=== PATIENT | male | born 1960 | race Caucasian/White ===

== ENCOUNTER 2016-04-25 15:22 | Emergency (ER) | payer OTHER ==
[~2016-04-25 15:22] MED LIST: LEVOFLOXACIN500 MG PO
--- NOTE | 2016-04-25 16:41 | ED NURSING NOTES ---
Clinical Report - Nurses [facility] [address] [place] [address] 04/25/2016 15:24 Patient: CLAIR ALFONSO TRIAGE Triage time 1600 PM. Acuity: LEVEL 3. Alert. No acute distress. SEPSIS SCREEN: Sepsis Screen. Negative (no infection suspected/documented). --16:13 Sera Baker R.N. 16:02 04/25/16. BP: 124/85 taken on the left arm, while lying. HR: 67. RR: 20. O2 saturation: 100%. Temp: 98.2 F (oral). Pain level now: 0/10. --16:13 Sera Baker R.N. Chief Complaint: RIGHT LOWER EXTREMITY PAIN. correction to prior entry - late entry -. --15:07 Sera Baker R.N. Weight: 69.3 kg stated. Height/Length: 70 inches Per Patient. BMI: 21.9. --16:02 Sera Baker R.N. Medications None. --16:03 Sera Baker R.N. Allergies No Known Drug Allergy. --16:03 Sera Baker R.N. Medication/allergy information source: the patient. --16:13 Sera Baker R.N. History Historian: patient. ( Pt was dropped off by a friend, homeless no doctor). This occurred (started two weeks ago). ( Pt states starting to feel right groin pain, "which he states that 4 years ago he was lifting and thought he tore something" it only hurts when he moves). Has had no swelling or redness. No fever, difficulty breathing, skin rash, itching or trouble walking. No weakness. Treatment DIET CONSULTANT: None. PAST MEDICAL HX: Tetanus status: unknown. Immunizations: up-to-date. SOCIAL HX: Light tobacco smoker (3 a day). Alcohol use. 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 History of occasional drug use: methamphetamines. (5 hours). ABUSE ASSESSMENT: Abuse assessment: (pt is homeless). No report of abuse. SELF HARM ASSESSMENT: A self harm assessment was performed. The patient answered "no" to the question "Do you have thoughts of harming or killing yourself?" and "Have you recently had thoughts about harming or killing others?". FALL RISK ASSESSMENT: Fall risk assessment completed. No fall risk identified. NUTRITIONAL RISK ASSESSMENT: The nutritional risk assessment revealed no deficiencies. FUNCTIONAL ASSESSMENT: Functional assessment: no impairments noted. LEARNING NEEDS ASSESSMENT: The learning needs assessment revealed no barriers. SKIN INTEGRITY ASSESSMENT: Skin integrity risk assessment completed. No skin integrity risk identified. --16:13 Sera Baker R.N. No injury occurred. It is described as radiating to the right groin. --15:07 Sera Baker R.N. PROBLEMS: Abrasion(s). Lifestyle / Substance Problems. Anxiety Reaction. Pneumonia. Substance Abuse. Contusion. Tetanus Status. Immunizations. Bronchitis. URI. Dental Pain. Hypertension. --16:04 Sera Baker R.N. ADDITIONAL SURGERIES: no known surgeries. Interventions ID band on patient. --16:13 Sera Baker R.N. PHYSICAL ASSESSMENT Ambulatory to room. GENERAL / NEURO / PSYCH: Oriented X 4. Alert. Appears in no acute distress. SKIN: Skin intact. Skin is warm and dry. --16:14 Sera Baker R.N. NURSING PROGRESS NOTES The initial plan of care for this patient has been created. Patient gowned. Reassurance given. Patient identifiers checked. Call light placed in reach. Side rails up x 2. Bed placed in lowest position. Brakes of bed on. Brakes of chair on. Patient ready for evaluation- chart flagged and notification provided. --16:14 Sera Baker R.N. DISPOSITION / DISCHARGE Departure time: 1650 PM. Condition at departure: stable. The goals identified in the patient's plan of care were met. No learning barriers present. Discharge instructions provided and reviewed. Patient verbalized understanding. Written instructions provided in Tunisian. No medication instructions, treatment instructions or referrals given to the patient. The patient was discharged by the nurse practitioner. He was discharged (homeless) and unaccompanied at time of discharge. He left the Emergency Department ambulatory and via private vehicle and (friend will tow picker). Driving (friend). FALL RISK ASSESSMENT: Fall risk assessment completed. No fall risk identified. ARTHUR COMA SCORE: [place] Coma Scale: 15- eyes open spontaneously (4); best verbal response- oriented x 4 (5); best motor response- obeys commands (6). --16:51 Sera Baker R.N. 16:46 04/25/16. BP: 126/96 taken on the left arm, via an automated monitor, while lying. HR: 73. RR: 16. O2 saturation: 99% on room air. Temp: 97.9 F (oral). Pain level now: 0/10. --16:51 Sera Baker R.N. Locked/Released at 05/02/2016 15:07 by Sera Baker R.N.
--- NOTE | 2016-04-25 16:41 | ED NURSING NOTES ---
Clinical Report - Nurses [facility] [address] [place] [address] 04/25/2016 15:24 Patient: CLAIR ALFONSO TRIAGE Triage time 1600 PM. Acuity: LEVEL 3. Alert. No acute distress. SEPSIS SCREEN: Sepsis Screen. Negative (no infection suspected/documented). --16:13 Sera Baker R.N. 16:02 04/25/16. BP: 124/85 taken on the left arm, while lying. HR: 67. RR: 20. O2 saturation: 100%. Temp: 98.2 F (oral). Pain level now: 0/10. --16:13 Sera Baker R.N. Chief Complaint: RIGHT LOWER EXTREMITY PAIN. correction to prior entry - late entry -. --15:07 Sera Baker R.N. Weight: 69.3 kg stated. Height/Length: 70 inches Per Patient. BMI: 21.9. --16:02 Sera Baker R.N. Medications None. --16:03 Sera Baker R.N. Allergies No Known Drug Allergy. --16:03 Sera Baker R.N. Medication/allergy information source: the patient. --16:13 Sera Baker R.N. History Historian: patient. ( Pt was dropped off by a friend, homeless no doctor). This occurred (started two weeks ago). ( Pt states starting to feel right groin pain, "which he states that 4 years ago he was lifting and thought he tore something" it only hurts when he moves). Has had no swelling or redness. No fever, difficulty breathing, skin rash, itching or trouble walking. No weakness. Treatment CHIEF LIBRARIAN BRANCH: None. PAST MEDICAL HX: Tetanus status: unknown. Immunizations: up-to-date. SOCIAL HX: Light tobacco smoker (3 a day). Alcohol use. 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 History of occasional drug use: methamphetamines. (5 hours). ABUSE ASSESSMENT: Abuse assessment: (pt is homeless). No report of abuse. SELF HARM ASSESSMENT: A self harm assessment was performed. The patient answered "no" to the question "Do you have thoughts of harming or killing yourself?" and "Have you recently had thoughts about harming or killing others?". FALL RISK ASSESSMENT: Fall risk assessment completed. No fall risk identified. NUTRITIONAL RISK ASSESSMENT: The nutritional risk assessment revealed no deficiencies. FUNCTIONAL ASSESSMENT: Functional assessment: no impairments noted. LEARNING NEEDS ASSESSMENT: The learning needs assessment revealed no barriers. SKIN INTEGRITY ASSESSMENT: Skin integrity risk assessment completed. No skin integrity risk identified. --16:13 Sera Baker R.N. No injury occurred. It is described as radiating to the right groin. --15:07 Sera Baker R.N. PROBLEMS: Abrasion(s). Lifestyle / Substance Problems. Anxiety Reaction. Pneumonia. Substance Abuse. Contusion. Tetanus Status. Immunizations. Bronchitis. URI. Dental Pain. Hypertension. --16:04 Sera Baker R.N. ADDITIONAL SURGERIES: no known surgeries. Interventions ID band on patient. --16:13 Sera Baker R.N. PHYSICAL ASSESSMENT Ambulatory to room. GENERAL / NEURO / PSYCH: Oriented X 4. Alert. Appears in no acute distress. SKIN: Skin intact. Skin is warm and dry. --16:14 Sera Baker R.N. NURSING PROGRESS NOTES The initial plan of care for this patient has been created. Patient gowned. Reassurance given. Patient identifiers checked. Call light placed in reach. Side rails up x 2. Bed placed in lowest position. Brakes of bed on. Brakes of chair on. Patient ready for evaluation- chart flagged and notification provided. --16:14 Sera Baker R.N. DISPOSITION / DISCHARGE Departure time: 1650 PM. Condition at departure: stable. The goals identified in the patient's plan of care were met. No learning barriers present. Discharge instructions provided and reviewed. Patient verbalized understanding. Written instructions provided in Zimbabwean. No medication instructions, treatment instructions or referrals given to the patient. The patient was discharged by the nurse practitioner. He was discharged (homeless) and unaccompanied at time of discharge. He left the Emergency Department ambulatory and via private vehicle and (friend will picket [employer]). Driving (friend). FALL RISK ASSESSMENT: Fall risk assessment completed. No fall risk identified. ARTHUR COMA SCORE: [place] Coma Scale: 15- eyes open spontaneously (4); best verbal response- oriented x 4 (5); best motor response- obeys commands (6). --16:51 Sera Baker R.N. 16:46 04/25/16. BP: 126/96 taken on the left arm, via an automated monitor, while lying. HR: 73. RR: 16. O2 saturation: 99% on room air. Temp: 97.9 F (oral). Pain level now: 0/10. --16:51 Sera Baker R.N. Locked/Released at 05/02/2016 15:07 by Sera Baker R.N.
--- NOTE | 2016-04-25 16:41 | ED CLINICAL REPORT ---
Clinical Report - Physicians/Mid Levels Merged With [facility] [address] [place] [address] 04/25/2016 15:24 Patient: CLAIR ALFONSO Time Seen: 1626; initial patient contact, initial documentation, patient care assumed. Arrived- By private vehicle. Historian- patient. RETURN VISIT: recently seen in this ED by another ED physician. Seen now for a new unrelated complaint. HISTORY OF PRESENT ILLNESS Chief Complaint: PELVIC PAIN groin pain. It is described as "pain". No radiation. It is described as located in the right pelvis. At its maximum, severity described as severe. When seen in the E.D., severity described as mild. Modifying factors. Not worsened by anything. Not relieved by anything. This started about 3 years ago and is still present. It was abrupt in onset and has been intermittent. No vomiting or diarrhea. No additional abdominal pain. (states he had to lift a jose e about x3 years ago, felt a tear in the R groin/pelvic area, and it comes and goes where it pops or pinches and causes pain). No recent travel. Similar symptoms previously: Chronically, as bad. Recent medical care: The patient was seen recently at this facility and hospitalized. ( admit for pnuemonia, 04/13). REVIEW OF SYSTEMS No constipation, black stools, hematemesis, difficulty with urination or pain with urination. No urinary frequency, bloody stools, fever, chest pain or difficulty breathing. All systems otherwise negative, except as recorded above. PAST HISTORY See nurses notes. PROBLEMS: Abrasion(s). Lifestyle / Substance Problems. Anxiety Reaction. Pneumonia. Substance Abuse. Contusion. Tetanus Status. Immunizations. Bronchitis. URI. Dental Pain. Hypertension. --16:04 Sera Baker RShawna. ADDITIONAL SURGERIES: no known surgeries. SOCIAL HISTORY Light tobacco smoker. Alcohol use. Patient is a longstanding alcoholic. History of heavy drug use: methamphetamines. Recently used drugs just prior to arrival. Under influence in ED. No recent travel. Is a local resident. FAMILY HISTORY Negative. ADDITIONAL NOTES The nursing notes have been reviewed with agreement regarding the chief complaint, HPI, ROS, PMH and patient medications and allergies. PHYSICAL EXAM Vital Signs: 04/25/2016 16:02 BP: 124/85. HR: 67. RR: 20. O2 saturation: 100%. Temp: 98.2 F. Pain level now: 0/10. Have been reviewed as normal and appear to be correct. Appearance: Alert. Oriented X3. No acute distress. Eyes: Pupils equal, round and reactive to light. Eyes normal inspection. Neck: Normal inspection. Neck supple. CVS: Normal heart rate and rhythm. Heart sounds normal. Pulses normal. Respiratory: No respiratory distress. Breath sounds normal. Chest nontender. Abdomen: Soft and nontender. No organomegaly. No mass. Back: Normal inspection. : Normal genitalia. Testes descended. (uncircumscised). Skin: Skin warm and dry. Normal skin color. No rash. Normal skin turgor. Extremities: Extremities exhibit normal ROM. No lower extremity edema. Neuro: Oriented X 3. No motor deficit. No sensory deficit. PROGRESS AND PROCEDURES Patient counseled in person regarding the patient's stable condition and diagnosis. 16:41. Differential Diagnosis: I considered acute appendicitis, adhesions, obstipation and hernia as a possible cause of abdominal pain in this patient. This is a partial list of diagnoses considered. Above considerations are based on history and physical exam. Differential diagnosis was discussed with patient. Disposition: Discharged home in good and improved condition (16:41). Condition: good and stable. CLINICAL IMPRESSION Chronic right lower quadrant abdominal pain. INSTRUCTIONS Warnings: GENERAL WARNINGS: Return or contact your physician immediately if your condition worsens or changes unexpectedly, if not improving as expected, or if other problems arise. SPECIFICALLY, return if you develop pain in the abdomen or pelvis, fever, the inability to keep fluids down, blood in vomitus, blood in diarrhea, fainting or lightheadedness. Follow-up: Follow up with your doctor in about two days even if well. Call for an appointment. Summary of care provided to family. Understanding of the discharge instructions verbalized by patient. (Electronically signed by Yanira Szymanski A.R.N.P. 04/25/2016 17:49)
--- NOTE | 2016-05-02 15:08 | ED MED RECONCILIATION SUMMARY ---
Patient: HORACE WHIPPLEADRIANNEYESSENIACLAIR Medication Reconciliation Report [facility] VisitID: [id number] [address] [place] [address] 56y, M Registration Date/Time: 04/25/2016 Weight: 69.3 kg Height/Length: 70 in. BMI: 21.9 ALLERGIES: No Known Drug Allergy The patient's Home Medications are listed below: NONE. The source(s) of the original Home Medication information: patient The following Medications were given to the patient in the Emergency Department: None. The following Medications were prescribed to the patient: None.
--- NOTE | 2016-05-02 15:08 | ED DISCHARGE INSTRUCTIONS ---
Patient: CLAIR ALFONSO General Instructions [facility] VisitID: [id number] [place] [address] 56y, M Registration Date/Time: 04/25/2016 Chronic right lower quadrant abdominal pain. INSTRUCTIONS Warnings: GENERAL WARNINGS: Return or contact your physician immediately if your condition worsens or changes unexpectedly, if not improving as expected, or if other problems arise. SPECIFICALLY, return if you develop pain in the abdomen or pelvis, fever, the inability to keep fluids down, blood in vomitus, blood in diarrhea, fainting or lightheadedness. Follow-up: Follow up with your doctor in about two days even if well. Call for an appointment. Summary of care provided to family. Understanding of the discharge instructions verbalized by patient. ADDITIONAL INFORMATION Abdominal Pain,Uncertain Cause [Male] Based on your visit today, the exact cause of your abdominalpain is not clear. Your exam and tests do not indicate a dangerous cause at this time. However, the signs of a serious problem may take more time to appear. Although your evaluation was reassuring today, sometimes early in the course of many conditions, exam and lab tests can appear normal. Therefore, it is important for you to watch for any new symptoms or worsening of your condition. Causes It may not be obvious what caused your symptoms. Pay attention to things that do seem to make your symptoms worse or better and discuss this with your doctor when you follow up. Diagnosis The evaluation of abdominal pain in the emergency department may onlyrequire an exam by the doctor or it may include blood, urine or imaging studies, depending on many factors. Sometimes exams and tests can identify a cause but in many cases, a clear cause is not found. Further testing at follow up visits may help to suggest a clear diagnosis. Home Care Rest as much as possible until your next exam. Try to avoid any medications (unless otherwise directed by your doctor), foods, activities, or other factors that you may have contributed to your symptoms. Try to eat foods that you know that you have tolerated well in the past. Certain diets may be recommended for some conditions that cause abdominal pain. However, since the cause of your symptoms may not be clear, discuss your diet more with your primary care provider or specialist for further recommendations. Eating several small meals per day as opposed to 2 or 3 larger meals may help. Monitor closely for anything that may make your symptoms worse or better. Pay close attention to symptoms below that may indicate worsening of your condition. Follow Up and Precautions See your doctoras instructed or sooneror if your symptoms are not improving.In some cases, you may need more testing. When to Seek Medical Attention Contact your doctor or see medical attention ifany of the following occur: Pain is becoming worse You are unable to take your medications due to excessive vomiting Swelling of the abdomen Fever of 100.4F (38C) or higher, or as directed by your health care provider Blood in vomit or bowel movements (dark red or black color) Jaundice (yellow color of eyes and skin) New onset of weakness, dizziness or fainting New onset of chest, arm, back, neck or jaw pain Abdominal Pain, Possible Appendicitis, Repeat Exam, Male Based on your visit today, the exact cause of your abdominal (stomach) pain is not certain. However, you do have some of the early signs of appendicitis. Early in an appendix infection the symptoms can be similar to a simple "stomach ache" or "stomach flu". Therefore, the diagnosis can be hard to make.Since an appendix infection is a serious condition, it is important to know if this is the cause of your symptoms. WAITING for more time to pass and repeating the exam is the best way to find out whether you have appendicitis. Within the next 12-24 hours the cause of your stomach pain should become clear. It is important for you to watch for any new symptoms or worsening of your condition.(See below). Home Care: Rest until your next exam. No strenuous activities. Eat a diet low in fiber (called a low-residue diet). Foods allowed include refined breads, white rice, fruit and vegetable juices without pulp, tender meats. These foods will pass more easily through the intestine. Avoid whole-grain foods, whole fruits and vegetables, meats, seeds and nuts, fried or fatty foods, dairy, alcohol and spicy foods until your symptoms go away. In some cases, you may be asked not to eat or drink anything until you are re-examined. Return for another exam exactly as directed. Follow Up with your doctor or this facility as directed. [NOTE: If you had an X-ray, CT scan, ultrasound, or EKG (cardiogram), it will be reviewed by a specialist. You will be notified of any new findings that may affect your care.] Return Promptly before your next appointment or contact your doctor if any of the following occur: Pain gets worse or moves to the right lower abdomen New or worsening vomiting or diarrhea Swelling of the abdomen Unable to pass stool for more than three days New fever over 100.4 F (38.0 C), or rising fever Blood in vomit or bowel movements (dark red or black color) Weakness, dizziness or fainting You have been given the following additional information: Abdominal Pain, Unknown Cause, (Male) Abdominal Pain, Possible Appendicitis [Male] (Electronically signed by Yanira Szymanski A.R.N.P. 04/25/2016 17:49)
--- NOTE | 2016-05-02 15:08 | ED MAR SUMMARY ---
..... Medication Administration Record [facility] [address] [place], [place] [id number] Patient: CLAIR ALFONSO Visit ID: [id number] 56y, M Weight: 69.3 kg Height/Length: 70 in BMI: 21.9 ALLERGIES: No Known Drug Allergy
--- NOTE | 2016-05-02 15:08 | ED MAR SUMMARY ---
..... Medication Administration Record [facility] [address], [place] [id number] Patient: CLAIR ALFONSO Visit ID: [id number] 56y, M Weight: 69.3 kg Height/Length: 70 in BMI: 21.9 ALLERGIES: No Known Drug Allergy
--- NOTE | 2016-05-02 15:08 | ED MED RECONCILIATION SUMMARY ---
Patient: HORACE WHIPPLEADRIANNEYESSENIACLAIR Medication Reconciliation Report [facility] VisitID: [id number] [address] [place] [place] [address] 56y, M Registration Date/Time: 04/25/2016 Weight: 69.3 kg Height/Length: 70 in. BMI: 21.9 ALLERGIES: No Known Drug Allergy The patient's Home Medications are listed below: NONE. The source(s) of the original Home Medication information: patient The following Medications were given to the patient in the Emergency Department: None. The following Medications were prescribed to the patient: None.
== END 2016-04-25 16:50 | disposition home or self-care (01) ==
LOC: ED SRH 15:22
DX: R10.31 Right lower quadrant pain (principal); G89.29 Other chronic pain; I10 Essential (primary) hypertension; F17.290 Nicotine dependence, other tobacco product, uncomplicated

== ENCOUNTER 2016-06-23 22:38 | Emergency (ER) | payer OTHER ==
--- NOTE | 2016-06-24 01:38 | ED NURSING NOTES ---
Clinical Report - Nurses [facility] [address] [place] [address] 06/23/2016 22:38 Patient: CLAIR ALFONSO TRIAGE Triage time 23:09. Acuity: LEVEL 3. Chief Complaint: ABDOMINAL PAIN and (RLQ ABD pain). 23:15. Alert. SEPSIS SCREEN: Sepsis Screen. Negative (no infection suspected/documented). --23:15 Fabien Kuhn R.N. 23:09 06/23/16. BP: 116/80. HR: 64. RR: 16. O2 saturation: 99%. Temp: 98.3 F (oral). Pain level now: 08/29. --23:15 Fabien Kuhn R.N. Weight: 69.3 kg stated. Height/Length: 70 inches Per Patient. BMI: 21.9. --23:14 Fabien Kuhn R.N. Medications None. --23:10 Fabien Kuhn R.N. Medication/allergy information source: the patient. --23:15 Fabien Kuhn R.N. Allergies No Known Drug Allergy. --23:10 Fabien Kuhn R.N. History Arrived by private vehicle. Historian: patient. Unaccompanied. Primary physician ([facility]). Onset. (4 years ago- comes and goes). ( Patient reports he thinks he ripped something in his ABD). Treatment INSTRUMENT ADJUSTER: None. PAST MEDICAL HX: Immunizations: up-to-date. SOCIAL HX: Current every day smoker (cigar). History of occasional drug use: methamphetamines, marijuana. No alcohol use. No recent travel. No infectious disease exposure. ABUSE ASSESSMENT: No report of abuse. FALL RISK ASSESSMENT: Fall risk assessment completed. No fall risk identified. NUTRITIONAL RISK ASSESSMENT: The nutritional risk assessment revealed no deficiencies. FUNCTIONAL ASSESSMENT: Functional assessment: no impairments noted. LEARNING NEEDS ASSESSMENT: The learning needs assessment revealed no barriers. SKIN INTEGRITY ASSESSMENT: Skin integrity risk assessment completed. No skin integrity risk identified. --23:15 Fabien Kuhn R.N. PROBLEMS: Anxiety Reaction. Substance Abuse. Bronchitis. URI. Hypertension. --23:11 Fabien Kuhn R.N. The following entry was modified by Celine Tinajero MD, 17:50 Reason - duplicate <<STRICKEN ENTRY-- Lifestyle / Substance Problems. --17:49 Celine Tinajero MD --END STRIKE>>. ADDITIONAL SURGERIES: no known surgeries. Interventions ID band on patient. To treatment room. --23:15 Fabien Kuhn R.N. PHYSICAL ASSESSMENT 23:15. Ambulatory to room. Patient gowned. GENERAL / NEURO / PSYCH: Alert. Oriented X 4. HEENT: Mucous membranes are pink. RESPIRATORY: Respirations not labored. SKIN: Skin is warm and dry. --23:15 Fabien Kuhn R.N. NURSING PROGRESS NOTES 23:16. Head of bed elevated. Two patient identifiers checked. Call light placed in reach. Bed placed in lowest position. Brakes of bed on. Patient ready for evaluation- chart flagged. --23:16 Fabien Kuhn R.N. DISPOSITION / DISCHARGE No learning barriers present. Discharge instructions provided and reviewed with the patient. Reviewed referrals. Patient verbalized understanding. Written instructions provided in Turkish. The patient was discharged by the physician. He was discharged home. He left the Emergency Department ambulatory and via private vehicle. FALL RISK ASSESSMENT: Fall risk assessment completed. No fall risk identified. --01:50 Darren Dickerson 01:49 06/24/16. BP: 116/65. HR: 66. RR: 16. O2 saturation: 100%. Temp: deferred. Pain level now: 06/01. --01:50 Darren Dickerson Departure time: 01:50. --01:50 Darren Dickerson Locked/Released at 07/05/2016 8:40 by Montserrat Dotson R.N.
--- NOTE | 2016-06-24 01:38 | ED NURSING NOTES ---
Clinical Report - Nurses [facility] [address] [place] [address] 06/23/2016 22:38 Patient: CLAIR ALFONSO TRIAGE Triage time 23:09. Acuity: LEVEL 3. Chief Complaint: ABDOMINAL PAIN and (RLQ ABD pain). 23:15. Alert. SEPSIS SCREEN: Sepsis Screen. Negative (no infection suspected/documented). --23:15 Fabien Kuhn R.N. 23:09 06/23/16. BP: 116/80. HR: 64. RR: 16. O2 saturation: 99%. Temp: 98.3 F (oral). Pain level now: 08/29. --23:15 Fabien Kuhn R.N. Weight: 69.3 kg stated. Height/Length: 70 inches Per Patient. BMI: 21.9. --23:14 Fabien Kuhn R.N. Medications None. --23:10 Fabien Kuhn R.N. Medication/allergy information source: the patient. --23:15 Fabien Kuhn R.N. Allergies No Known Drug Allergy. --23:10 Fabien Kuhn R.N. History Arrived by private vehicle. Historian: patient. Unaccompanied. Primary physician ([facility]). Onset. (4 years ago- comes and goes). ( Patient reports he thinks he ripped something in his ABD). Treatment RADIO MECHANIC: None. PAST MEDICAL HX: Immunizations: up-to-date. SOCIAL HX: Current every day smoker (cigar). History of occasional drug use: methamphetamines, marijuana. No alcohol use. No recent travel. No infectious disease exposure. ABUSE ASSESSMENT: No report of abuse. FALL RISK ASSESSMENT: Fall risk assessment completed. No fall risk identified. NUTRITIONAL RISK ASSESSMENT: The nutritional risk assessment revealed no deficiencies. FUNCTIONAL ASSESSMENT: Functional assessment: no impairments noted. LEARNING NEEDS ASSESSMENT: The learning needs assessment revealed no barriers. SKIN INTEGRITY ASSESSMENT: Skin integrity risk assessment completed. No skin integrity risk identified. --23:15 Fabien Kuhn R.N. PROBLEMS: Anxiety Reaction. Substance Abuse. Bronchitis. URI. Hypertension. --23:11 Fabien Kuhn R.N. The following entry was modified by Celine Tinajero MD, 17:50 Reason - duplicate <<STRICKEN ENTRY-- Lifestyle / Substance Problems. --17:49 Celine Tinajero MD --END STRIKE>>. ADDITIONAL SURGERIES: no known surgeries. Interventions ID band on patient. To treatment room. --23:15 Fabien Kuhn R.N. PHYSICAL ASSESSMENT 23:15. Ambulatory to room. Patient gowned. GENERAL / NEURO / PSYCH: Alert. Oriented X 4. HEENT: Mucous membranes are pink. RESPIRATORY: Respirations not labored. SKIN: Skin is warm and dry. --23:15 Fabien Kuhn R.N. NURSING PROGRESS NOTES 23:16. Head of bed elevated. Two patient identifiers checked. Call light placed in reach. Bed placed in lowest position. Brakes of bed on. Patient ready for evaluation- chart flagged. --23:16 Fabien Kuhn R.N. DISPOSITION / DISCHARGE No learning barriers present. Discharge instructions provided and reviewed with the patient. Reviewed referrals. Patient verbalized understanding. Written instructions provided in Amharic. The patient was discharged by the physician. He was discharged home. He left the Emergency Department ambulatory and via private vehicle. FALL RISK ASSESSMENT: Fall risk assessment completed. No fall risk identified. --01:50 Darren Dickerson 01:49 06/24/16. BP: 116/65. HR: 66. RR: 16. O2 saturation: 100%. Temp: deferred. Pain level now: 06/01. --01:50 Darren Dickerson Departure time: 01:50. --01:50 Darren Dickerson Locked/Released at 07/05/2016 8:40 by Montserrat Dotson R.N.
--- NOTE | 2016-06-24 01:38 | ED CLINICAL REPORT ---
Clinical Report - Physicians/Mid Levels [facility] [address] [place] [address] 06/23/2016 22:38 Patient: JARAD ALFONSO Time Seen: 00:27. Arrived- By private vehicle. Historian- patient. HISTORY OF PRESENT ILLNESS Chief Complaint: inguinal pain, "I think I have a hernia". At its maximum, severity described as moderate. When seen in the E.D., it was gone. Modifying factors- (Standing worsens, supine position relieves.). This started yesterday and is now gone. It is described as "pain" and it is described as located in the right lower quadrant. No nausea, loss of appetite, vomiting or diarrhea. Similar symptoms previously: None. Recent medical care: Not recently seen/assessed. REVIEW OF SYSTEMS No constipation, black stools, hematemesis, difficulty with urination or pain with urination. No urinary frequency, bloody stools, fever, headache or sore throat. No blurred vision, chest pain, difficulty breathing, cough or joint pain. No skin rash, chills or back pain. All systems otherwise negative, except as recorded above. PAST HISTORY Problems: Anxiety Reaction. Substance Abuse. Tetanus Status. Immunizations. Hypertension. Additional Surgeries: no known surgeries. Medications: None. Allergies: No Known Drug Allergy. SOCIAL HISTORY Smoker- current status unknown. History of drug use: methamphetamines, marijuana. No alcohol use. ADDITIONAL NOTES The nursing notes have been reviewed. PHYSICAL EXAM Vital Signs: 06/23/2016 23:09 BP: 116/80. HR: 64. RR: 16. O2 saturation: 99%. Temp: 98.3 F. Pain level now: 5/10. Have been reviewed. Appearance: Alert. Oriented X3. No acute distress. Eyes: Pupils equal, round and reactive to light. Eyes normal inspection. ENT: Nose normal. Neck: Normal inspection. Neck supple. CVS: Normal heart rate and rhythm. Heart sounds normal. Pulses normal. Respiratory: No respiratory distress. Breath sounds normal. Abdomen: Soft and nontender. No mass. (Pt has a few prominent, but mobile, inguinal nodes bilaterally. No distinct hernia.). Back: Normal inspection. : Normal genitalia. Skin: Skin warm and dry. Normal skin color. No rash. Normal skin turgor. Extremities: Extremities exhibit normal ROM. No lower extremity edema. Neuro: Oriented X 3. No motor deficit. No sensory deficit. LABS, X-RAYS, AND EKG Pulse Oximetry: 06/23/2016 23:09 O2 saturation: 99%. (FIO2 - room air). Interpretation: normal. PROGRESS AND PROCEDURES Course of Care: D/w pt: He will need to follow up with the surgeons to discuss whether he is a surgical candidate, if he indeed has a hernia. No emergent management is indicated at this time. Patient counseled in person regarding the patient's stable condition, diagnosis and need for follow-up. Concerns were addressed. Old medical records reviewed. Disposition: Discharged. Condition: stable. CLINICAL IMPRESSION Strain of right inguinal area Possible reducible right inguinal hernia. No obstruction or gangrene. INSTRUCTIONS Drink plenty of fluids. Warnings: Further evaluation is necessary. GENERAL WARNINGS: Return or contact your physician immediately if your condition worsens or changes unexpectedly, if not improving as expected, or if other problems arise. Understanding of the discharge instructions verbalized by patient. Follow-up with: Jarad Avendaño MD, General Surgeon, , [facility], [address] [place] [address], [id number] Follow up. Call for the next available appointment. Reason for referral: Follow up possible hernia. (Electronically signed by Celine Tinajero MD 06/24/2016 17:52)
--- NOTE | 2016-06-24 01:38 | ED CLINICAL REPORT ---
Clinical Report - Physicians/Mid Levels [facility] [address] [place] [address] 06/23/2016 22:38 Patient: JARAD ALFONSO Time Seen: 00:27. Arrived- By private vehicle. Historian- patient. HISTORY OF PRESENT ILLNESS Chief Complaint: inguinal pain, "I think I have a hernia". At its maximum, severity described as moderate. When seen in the E.D., it was gone. Modifying factors- (Standing worsens, supine position relieves.). This started yesterday and is now gone. It is described as "pain" and it is described as located in the right lower quadrant. No nausea, loss of appetite, vomiting or diarrhea. Similar symptoms previously: None. Recent medical care: Not recently seen/assessed. REVIEW OF SYSTEMS No constipation, black stools, hematemesis, difficulty with urination or pain with urination. No urinary frequency, bloody stools, fever, headache or sore throat. No blurred vision, chest pain, difficulty breathing, cough or joint pain. No skin rash, chills or back pain. All systems otherwise negative, except as recorded above. PAST HISTORY Problems: Anxiety Reaction. Substance Abuse. Tetanus Status. Immunizations. Hypertension. Additional Surgeries: no known surgeries. Medications: None. Allergies: No Known Drug Allergy. SOCIAL HISTORY Smoker- current status unknown. History of drug use: methamphetamines, marijuana. No alcohol use. ADDITIONAL NOTES The nursing notes have been reviewed. PHYSICAL EXAM Vital Signs: 06/23/2016 23:09 BP: 116/80. HR: 64. RR: 16. O2 saturation: 99%. Temp: 98.3 F. Pain level now: 5/10. Have been reviewed. Appearance: Alert. Oriented X3. No acute distress. Eyes: Pupils equal, round and reactive to light. Eyes normal inspection. ENT: Nose normal. Neck: Normal inspection. Neck supple. CVS: Normal heart rate and rhythm. Heart sounds normal. Pulses normal. Respiratory: No respiratory distress. Breath sounds normal. Abdomen: Soft and nontender. No mass. (Pt has a few prominent, but mobile, inguinal nodes bilaterally. No distinct hernia.). Back: Normal inspection. : Normal genitalia. Skin: Skin warm and dry. Normal skin color. No rash. Normal skin turgor. Extremities: Extremities exhibit normal ROM. No lower extremity edema. Neuro: Oriented X 3. No motor deficit. No sensory deficit. LABS, X-RAYS, AND EKG Pulse Oximetry: 06/23/2016 23:09 O2 saturation: 99%. (FIO2 - room air). Interpretation: normal. PROGRESS AND PROCEDURES Course of Care: D/w pt: He will need to follow up with the surgeons to discuss whether he is a surgical candidate, if he indeed has a hernia. No emergent management is indicated at this time. Patient counseled in person regarding the patient's stable condition, diagnosis and need for follow-up. Concerns were addressed. Old medical records reviewed. Disposition: Discharged. Condition: stable. CLINICAL IMPRESSION Strain of right inguinal area Possible reducible right inguinal hernia. No obstruction or gangrene. INSTRUCTIONS Drink plenty of fluids. Warnings: Further evaluation is necessary. GENERAL WARNINGS: Return or contact your physician immediately if your condition worsens or changes unexpectedly, if not improving as expected, or if other problems arise. Understanding of the discharge instructions verbalized by patient. Follow-up with: Jarad Avendaño MD, General Surgeon, , [facility], [address] [place] [address], [id number] Follow up. Call for the next available appointment. Reason for referral: Follow up possible hernia. (Electronically signed by Celine Tinajero MD 06/24/2016 17:52)
--- NOTE | 2016-07-05 08:40 | ED DISCHARGE INSTRUCTIONS ---
Patient: JARAD ALFONSO General Instructions [facility] VisitID: [id number] [address] [place] [id number] 56y, M Registration Date/Time: 06/23/2016 Strain of right inguinal area INSTRUCTIONS Drink plenty of fluids. Warnings: Further evaluation is necessary. GENERAL WARNINGS: Return or contact your physician immediately if your condition worsens or changes unexpectedly, if not improving as expected, or if other problems arise. Understanding of the discharge instructions verbalized by patient. Follow-up with: Jarad Avendaño MD, General Surgeon, , [facility], [address] [place] [address], [facility] [address] Follow up. Call for the next available appointment. Reason for referral: Follow up possible hernia. ADDITIONAL INFORMATION Hernia [Adult] A hernia is a bulge of the intestines or surrounding tissues through a tear in the muscle of the abdomen or groin. This may occur as a result of excessive coughing, heavy lifting or being overweight. It can also occur at the site of prior surgery. When a hernia first appears it may be painful due to stretching and tearing of the muscle fibers. When you lie down, the bulge should reduce in size or disappear completely. If it does not, and you are unable to flatten it with your hand, medical attention is needed at once. Home Care: Avoid heavy lifting and straining or any activities that cause pain in the hernia. Follow Up with your physician as directed by our staff. Get Prompt Medical Attention if any of the following occur: Increasing size of the hernia Increasing pain in the hernia A hernia that does not get smaller when you lie down Hardening of the hernia Abdominal swelling, fever or repeated vomiting Pain moves to the lower right abdomen (just below the waistline) or spreads to the back Groin Strain [Adult] A groin strain is a stretching or partial tearing in the muscle of the lower abdomen or upper thigh. This may occur as a result of excessive coughing, heavy lifting, or strenuous sports. The pain may last for several days to several weeks, depending on how bad the stretch or tear is. This will improve with rest, ice, and anti-inflammatory medicines. A groin strain can lead to a groin hernia (inguinal hernia). A hernia is a complete tear of the abdominal muscle, which allows abdominal contents (fat or intestines) to bulge forward and create a visible swelling just above the thigh crease. This is a more serious problem and may need surgery to repair it. When you lie down, the bulge should reduce in size or disappear completely. If it does not, and you are unable to flatten it with your hand, medical attention is needed at once. Home Care: Avoid heavy lifting and straining or any activities that cause groin pain. You may use acetaminophen (Tylenol) or ibuprofen (Motrin, Advil) to control pain, unless another pain medicine was prescribed. [NOTE: If you have chronic liver or kidney disease or ever had a stomach ulcer or GI bleeding, talk with your doctor before using these medicines.] Follow Up with your physician, or as directed by our staff. Make an appointment with your doctor if you develop a bulge in the area of the groin strain. Return Promptly or contact your doctor if any of the following occur: Increasing pain in the area of the groin strain Tender bulge just above the groin crease that does not flatten when you lie down or press on it Generalized abdominal swelling or pain Fever of 100.4F (38C) or higher, or as directed by your healthcare provider Repeated vomiting Pain moves to the lower right abdomen (just below the waistline) or spreads to the back You have been given the following additional information: Hernia (Inguinal, Ventral, Umbilical) Groin Strain (Electronically signed by Celine Tinajero MD 06/24/2016 17:52)
--- NOTE | 2016-07-05 08:40 | ED MED RECONCILIATION SUMMARY ---
Patient: CLAIR ALFONSO Deanna Medication Reconciliation Report [facility] VisitID: [id number] [address] [place] [address] 56y, M Registration Date/Time: 06/23/2016 Weight: 69.3 kg Height/Length: 70 in. BMI: 21.9 ALLERGIES: No Known Drug Allergy The patient's Home Medications are listed below: NONE. The source(s) of the original Home Medication information: patient The following Medications were given to the patient in the Emergency Department: None. The following Medications were prescribed to the patient: None.
--- NOTE | 2016-07-05 08:40 | ED DISCHARGE INSTRUCTIONS ---
Patient: JARAD ALFONSO General Instructions [facility] VisitID: [id number] [address] [place], [place] [id number] 56y, M Registration Date/Time: 06/23/2016 Strain of right inguinal area INSTRUCTIONS Drink plenty of fluids. Warnings: Further evaluation is necessary. GENERAL WARNINGS: Return or contact your physician immediately if your condition worsens or changes unexpectedly, if not improving as expected, or if other problems arise. Understanding of the discharge instructions verbalized by patient. Follow-up with: Jarad Avendaño MD, General Surgeon, , [facility], [address] [place] [address], [facility] [address] Follow up. Call for the next available appointment. Reason for referral: Follow up possible hernia. ADDITIONAL INFORMATION Hernia [Adult] A hernia is a bulge of the intestines or surrounding tissues through a tear in the muscle of the abdomen or groin. This may occur as a result of excessive coughing, heavy lifting or being overweight. It can also occur at the site of prior surgery. When a hernia first appears it may be painful due to stretching and tearing of the muscle fibers. When you lie down, the bulge should reduce in size or disappear completely. If it does not, and you are unable to flatten it with your hand, medical attention is needed at once. Home Care: Avoid heavy lifting and straining or any activities that cause pain in the hernia. Follow Up with your physician as directed by our staff. Get Prompt Medical Attention if any of the following occur: Increasing size of the hernia Increasing pain in the hernia A hernia that does not get smaller when you lie down Hardening of the hernia Abdominal swelling, fever or repeated vomiting Pain moves to the lower right abdomen (just below the waistline) or spreads to the back Groin Strain [Adult] A groin strain is a stretching or partial tearing in the muscle of the lower abdomen or upper thigh. This may occur as a result of excessive coughing, heavy lifting, or strenuous sports. The pain may last for several days to several weeks, depending on how bad the stretch or tear is. This will improve with rest, ice, and anti-inflammatory medicines. A groin strain can lead to a groin hernia (inguinal hernia). A hernia is a complete tear of the abdominal muscle, which allows abdominal contents (fat or intestines) to bulge forward and create a visible swelling just above the thigh crease. This is a more serious problem and may need surgery to repair it. When you lie down, the bulge should reduce in size or disappear completely. If it does not, and you are unable to flatten it with your hand, medical attention is needed at once. Home Care: Avoid heavy lifting and straining or any activities that cause groin pain. You may use acetaminophen (Tylenol) or ibuprofen (Motrin, Advil) to control pain, unless another pain medicine was prescribed. [NOTE: If you have chronic liver or kidney disease or ever had a stomach ulcer or GI bleeding, talk with your doctor before using these medicines.] Follow Up with your physician, or as directed by our staff. Make an appointment with your doctor if you develop a bulge in the area of the groin strain. Return Promptly or contact your doctor if any of the following occur: Increasing pain in the area of the groin strain Tender bulge just above the groin crease that does not flatten when you lie down or press on it Generalized abdominal swelling or pain Fever of 100.4F (38C) or higher, or as directed by your healthcare provider Repeated vomiting Pain moves to the lower right abdomen (just below the waistline) or spreads to the back You have been given the following additional information: Hernia (Inguinal, Ventral, Umbilical) Groin Strain (Electronically signed by Celine Tinajero MD 06/24/2016 17:52)
--- NOTE | 2016-07-05 08:40 | ED MAR SUMMARY ---
..... Medication Administration Record [facility] [address] [place], [place] [id number] Patient: CLAIR ALFONSO Visit ID: [id number] 56y, M Weight: 69.3 kg Height/Length: 70 in BMI: 21.9 ALLERGIES: No Known Drug Allergy
--- NOTE | 2016-07-05 08:40 | ED MED RECONCILIATION SUMMARY ---
Patient: CLAIR ALFONSO Deanna Medication Reconciliation Report [facility] VisitID: [id number] [address] [place] [address] 56y, M Registration Date/Time: 06/23/2016 Weight: 69.3 kg Height/Length: 70 in. BMI: 21.9 ALLERGIES: No Known Drug Allergy The patient's Home Medications are listed below: NONE. The source(s) of the original Home Medication information: patient The following Medications were given to the patient in the Emergency Department: None. The following Medications were prescribed to the patient: None.
--- NOTE | 2016-07-05 08:40 | ED MAR SUMMARY ---
..... Medication Administration Record [facility] [address], [place] [id number] Patient: CLAIR ALFONSO Visit ID: [id number] 56y, M Weight: 69.3 kg Height/Length: 70 in BMI: 21.9 ALLERGIES: No Known Drug Allergy
== END 2016-06-24 01:43 | disposition home or self-care (01) ==
LOC: ED SRH 22:38
DX: S76.211A Strain of adductor muscle, fascia and tendon of right thigh, initial encounter (principal); X58.XXXA Exposure to other specified factors, initial encounter; Y93.9 Activity, unspecified; Y92.9 Unspecified place or not applicable; Y99.9 Unspecified external cause status; I10 Essential (primary) hypertension

== ENCOUNTER 2016-09-21 12:51 | Emergency (ER) | payer OTHER ==
--- NOTE | 2016-09-21 13:15 | ED CLINICAL REPORT ---
Clinical Report - Physicians/Mid Levels [facility] [address] [place] [address] 09/21/2016 12:51 Patient: CLAIR ALFONSO Time Seen: 13:17 Sep 21 2016. Arrived- By private vehicle. Historian- patient. HISTORY OF PRESENT ILLNESS Chief Complaint: EYE PAIN, REDNESS and IRRITATION. This started just prior to arrival, involves the right eye, is characterized as mild and is still present. The patient did not sustain an injury. Eye discomfort. No eye irritation or eye discharge. ( possible foreign arm due to the right eye, silicone or possible from a brush yesterday. Records were body sensation since. Reports trying to place vaseline to the eye with pain. Reports use of reading glasses. NO prior major injury to eye, no surgical history. Does not wear contacts. Some blurred vision). REVIEW OF SYSTEMS No sore throat. All systems otherwise negative, except as recorded above. PAST HISTORY No history of prior eye injury. He does not wear contact lenses. Problems: Abdominal Pain. Abrasion(s). Anxiety Reaction. Pneumonia. Substance Abuse. Contusion. Tetanus Status. Immunizations. Bronchitis. URI. Dental Pain. Hypertension. Additional Surgeries: no known surgeries. Medications: None. Allergies: No Known Drug Allergy. SOCIAL HISTORY Smoker- current status unknown. Alcohol use. History of drug use. ADDITIONAL NOTES The nursing notes have been reviewed. PHYSICAL EXAM Vital Signs: 09/21/2016 13:00 BP: 140/95. HR: 73. RR: 20. O2 saturation: 98%. Temp: 98.8 F. Pain level now: 5/10. Appearance: Alert. Rt Eye: EOM palsy. Injected conjunctiva. Exudate present. No foreign body under the eyelid. No injury to the eyelids. No conjunctival foreign body, injury to the conjunctiva, corneal foreign body or abrasion or fluorescein dye uptake. Eyes: Visual acuity noted- see nurse's notes. Right eyelid everted for examination. Corneas examined with fluorescein stain. Pupils equal, round and reactive to light. Lt Eye: Left eye exam normal. CVS: Normal heart rate and rhythm. Heart sounds normal. Respiratory: No respiratory distress. Breath sounds normal. Skin: No rash. Neuro: Oriented X 3. PROGRESS AND PROCEDURES Course of Care: Visual acuity: Left 20/30, right 20/50, both 20/30 no signs of injury, may have sustained a small abrasion yesterday, no signs of any foreign object today or any fluorescein dye uptake. Patient will be prescribed Polytrim, encased recent injury and now secondary infection. No other signs of protruding injury. EOM intact, no signs of septal or preseptal cellulitis. Patient is stable. Symptoms better. Patient/family counseled. Disposition: Discharged. CLINICAL IMPRESSION Acute conjunctivitis of the right eye. INSTRUCTIONS Rest. Prescription Medications: Polytrim ophthalmic solution: Instill 1 drop into affected eye every 3 hours while awake (max 6 doses per day) for 1 week. Dispense five (5) mL. No refills. Substitution is permissible. OTC Medications: Tylenol ER 650 mg (available over the counter): take 1 orally every 8 hours for 5 days, as needed for fever. Dispense twenty (20). No refill. Substitution is permissible. Follow-up: Follow up with your doctor in three days. (Electronically signed by Destiney Garcias P.A.-C 09/21/2016 13:21)
--- NOTE | 2016-09-21 13:15 | ED NURSING NOTES ---
Clinical Report - Nurses [address] [place] [address] 09/21/2016 12:51 [id number] Triage time 13:00. Acuity: LEVEL 4. Chief Complaint: (Foreign body in his right eye. Onset yesterday. He thinks he got silicone dust from a silicone dry pack in his eye. Visual acuity: Left 20/30, right 20/50, both 20/30.). SEPSIS SCREEN: Sepsis Screen. Negative (no infection suspected/documented). ARTHUR COMA SCORE: [place] Coma Scale: 15- eyes open spontaneously (4); best verbal response- oriented x 4 (5); best motor response- obeys commands (6). --13:12 Naresh Dumont R.N. 13:00 09/21/16. BP: 140/95 (regular adult cuff) taken on the left arm, while lying. HR: 73. RR: 20. O2 saturation: 98% on room air. Temp: 98.8 F. Pain level now: 5/10. --13:12 Naresh Dumont R.N. Weight: 73.4 kg stated. Height/Length: 70 inches Per Patient. BMI: 23.2. --13:05 Naresh Dumont R.N. Medications None. --13:03 Naresh Dumont R.N. Allergies No Known Drug Allergy. --13:03 Naresh Dumont R.N. History Arrived by private vehicle. Historian: patient. PAST MEDICAL HX: Immunizations: (Tdap- 2 years ago). SOCIAL HX: Smoker- current status unknown (cigar) (4 to 5 per day). Occasional alcohol use. History of occasional drug use: marijuana. ABUSE ASSESSMENT: No report of abuse. --13:12 Naresh Dumont R.N. PROBLEMS: Abdominal Pain. Abrasion(s). Anxiety Reaction. Pneumonia. Substance Abuse. Contusion. Bronchitis. URI. Dental Pain. Hypertension. --13:03 Naresh Dumont R.N. ADDITIONAL SURGERIES: no known surgeries. Interventions ID band on patient. To treatment room. --13:12 Naresh Dumont R.N. PHYSICAL ASSESSMENT Ambulatory to room. GENERAL / NEURO / PSYCH: Alert. Oriented X 4. Appears in pain. ( forced rapid speech). HEENT: Pupils equal, round and reactive to light. No facial asymmetry noted. ( right eye errythema). Mucous membranes are pink. SKIN: Skin intact. Skin is warm and dry. Poor skin turgor. --13:13 Naresh Dumont R.N. NURSING PROGRESS NOTES Head of bed elevated. Reassurance given. Two patient identifiers checked. Call light placed in reach. Bed placed in lowest position. Brakes of bed on. --13:12 Naresh Dumont R.N. DISPOSITION / DISCHARGE Departure time: 1337. Condition at departure: improved and stable. No learning barriers present. Discharge instructions provided and reviewed with the patient. Reviewed medication(s). Patient verbalized understanding. Written instructions provided in [place]. The patient was discharged by the physician admissions assistant. He was discharged home and accompanied by speech and language assistant. He left the Emergency Department ambulatory and via private vehicle. Air Conditioning Installer Supervisor driving. --13:40 Naresh Dumont R.N. 13:38 09/21/16. BP: 133/77. HR: 77. RR: 20. O2 saturation: 99% on room air. Temp: 98.8 F (oral). Pain level now: 06/29. --13:40 Naresh Dumont R.N. Locked/Released at 09/21/2016 13:41 by Naresh Dumont R.N.
--- NOTE | 2016-09-21 13:15 | ED NURSING NOTES ---
Clinical Report - Nurses [facility] [address] [place] [address] 09/21/2016 12:51 [id number] Triage time 13:00. Acuity: LEVEL 4. Chief Complaint: (Foreign body in his right eye. Onset yesterday. He thinks he got silicone dust from a silicone dry pack in his eye. Visual acuity: Left 20/30, right 20/50, both 20/30.). SEPSIS SCREEN: Sepsis Screen. Negative (no infection suspected/documented). ARTHUR COMA SCORE: [place] Coma Scale: 15- eyes open spontaneously (4); best verbal response- oriented x 4 (5); best motor response- obeys commands (6). --13:12 Naresh Dumont R.N. 13:00 09/21/16. BP: 140/95 (regular adult cuff) taken on the left arm, while lying. HR: 73. RR: 20. O2 saturation: 98% on room air. Temp: 98.8 F. Pain level now: 5/10. --13:12 Naresh Dumont R.N. Weight: 73.4 kg stated. Height/Length: 70 inches Per Patient. BMI: 23.2. --13:05 Naresh Dumont R.N. Medications None. --13:03 Naresh Dumont R.N. Allergies No Known Drug Allergy. --13:03 Naresh Dumont R.N. History Arrived by private vehicle. Historian: patient. PAST MEDICAL HX: Immunizations: (Tdap- 2 years ago). SOCIAL HX: Smoker- current status unknown (cigar) (4 to 5 per day). Occasional alcohol use. History of occasional drug use: marijuana. ABUSE ASSESSMENT: No report of abuse. --13:12 Naresh Dumont R.N. PROBLEMS: Abdominal Pain. Abrasion(s). Anxiety Reaction. Pneumonia. Substance Abuse. Contusion. Bronchitis. URI. Dental Pain. Hypertension. --13:03 Naresh Dumont R.N. ADDITIONAL SURGERIES: no known surgeries. Interventions ID band on patient. To treatment room. --13:12 Naresh Dumont R.N. PHYSICAL ASSESSMENT Ambulatory to room. GENERAL / NEURO / PSYCH: Alert. Oriented X 4. Appears in pain. ( forced rapid speech). HEENT: Pupils equal, round and reactive to light. No facial asymmetry noted. ( right eye errythema). Mucous membranes are pink. SKIN: Skin intact. Skin is warm and dry. Poor skin turgor. --13:13 Naresh Dumont R.N. NURSING PROGRESS NOTES Head of bed elevated. Reassurance given. Two patient identifiers checked. Call light placed in reach. Bed placed in lowest position. Brakes of bed on. --13:12 Naresh Dumont R.N. DISPOSITION / DISCHARGE Departure time: 1337. Condition at departure: improved and stable. No learning barriers present. Discharge instructions provided and reviewed with the patient. Reviewed medication(s). Patient verbalized understanding. Written instructions provided in Swazi. The patient was discharged by the physician assistant elementary teacher. He was discharged home and accompanied by cook camp. He left the Emergency Department ambulatory and via private vehicle. Trichologist driving. --13:40 Naresh Dumont R.N. 13:38 09/21/16. BP: 133/77. HR: 77. RR: 20. O2 saturation: 99% on room air. Temp: 98.8 F (oral). Pain level now: 06/29. --13:40 Naresh Dumont R.N. Locked/Released at 09/21/2016 13:41 by Naresh Dumont R.N.
--- NOTE | 2016-09-21 13:41 | ED MED RECONCILIATION SUMMARY ---
Patient: CLAIR ALFONSO Medication Reconciliation Report [facility] VisitID: [id number] [address] [place] [address] 56y, M Registration Date/Time: 09/21/2016 Weight: 73.4 kg Height/Length: 70 in. BMI: 23.2 ALLERGIES: No Known Drug Allergy The patient's Home Medications are listed below: NONE. The source(s) of the original Home Medication information: Not obtained. The following Medications were given to the patient in the Emergency Department: None. The following Medications were prescribed to the patient: Polytrim ophthalmic solution: Instill 1 drop into affected eye every 3 hours while awake (max 6 doses per day) for 1 week. Dispense five (5) mL. No refills. Substitution is permissible. -- Destiney Garcias, P.A.-C Tylenol ER 650 mg (available over the counter): take 1 orally every 8 hours for 5 days, as needed for fever. Dispense twenty (20). No refill. Substitution is permissible. -- Destiney Garcias, P.A.-C
--- NOTE | 2016-09-21 13:41 | ED DISCHARGE INSTRUCTIONS ---
Patient: CLAIR ALFONSO General Instructions [facility] VisitID: [id number] [place] [address] 56y, M Registration Date/Time: 09/21/2016 Acute conjunctivitis of the right eye. INSTRUCTIONS Rest. Prescription Medications: Polytrim ophthalmic solution: Instill 1 drop into affected eye every 3 hours while awake (max 6 doses per day) for 1 week. Dispense five (5) mL. No refills. Substitution is permissible. OTC Medications: Tylenol ER 650 mg (available over the counter): take 1 orally every 8 hours for 5 days, as needed for fever. Dispense twenty (20). No refill. Substitution is permissible. Follow-up: Follow up with your doctor in three days. ADDITIONAL INFORMATION Conjunctivitis, Non-Specific The membrane that covers your eye is inflamed. Any itching, burning or irritation should go away within the next 24 hours. Conjunctivitis may be related to a particle that was in your eye. If so, it was washed out with your tears or irrigation treatment. Being exposed to liquid chemicals or fumes may also cause this reaction. Your condition does not appear to be due to an eye infection. Home Care: Apply a cold pack (ice in a plastic bag, wrapped in a towel) over the eye for 20 minutes at a time. This will reduce pain. Eye drops may be prescribed to reduce irritation or redness. Otherwise, Visine or similar [id number] decongestant eye drops may be used. You may use acetaminophen (Tylenol) or ibuprofen (Motrin, Advil) to control pain, unless another medicine was prescribed. [ NOTE: If you have chronic liver or kidney disease or ever had a stomach ulcer or GI bleeding, talk with your doctor before using these medicines.] Follow Up with your doctor or this facility as directed, or if your symptoms have not improved after 24 hours. Get Prompt Medical Attention if any of the following occur: Increased eyelid swelling Increase in eye pain Increased redness or drainage from the eye Failure of normal vision to return within 24-48 hours. You have been given the following additional information: Conjunctivitis, Non-Specific Rest. (Electronically signed by Destiney Garcias P.A.-C 09/21/2016 13:21)
--- NOTE | 2016-09-21 13:41 | ED DISCHARGE INSTRUCTIONS ---
Patient: CLAIR ALFONSO General Instructions [facility] VisitID: [id number] [place] [address] 56y, M Registration Date/Time: 09/21/2016 Acute conjunctivitis of the right eye. INSTRUCTIONS Rest. Prescription Medications: Polytrim ophthalmic solution: Instill 1 drop into affected eye every 3 hours while awake (max 6 doses per day) for 1 week. Dispense five (5) mL. No refills. Substitution is permissible. OTC Medications: Tylenol ER 650 mg (available over the counter): take 1 orally every 8 hours for 5 days, as needed for fever. Dispense twenty (20). No refill. Substitution is permissible. Follow-up: Follow up with your doctor in three days. ADDITIONAL INFORMATION Conjunctivitis, Non-Specific The membrane that covers your eye is inflamed. Any itching, burning or irritation should go away within the next 24 hours. Conjunctivitis may be related to a particle that was in your eye. If so, it was washed out with your tears or irrigation treatment. Being exposed to liquid chemicals or fumes may also cause this reaction. Your condition does not appear to be due to an eye infection. Home Care: Apply a cold pack (ice in a plastic bag, wrapped in a towel) over the eye for 20 minutes at a time. This will reduce pain. Eye drops may be prescribed to reduce irritation or redness. Otherwise, Visine or similar [id number] decongestant eye drops may be used. You may use acetaminophen (Tylenol) or ibuprofen (Motrin, Advil) to control pain, unless another medicine was prescribed. [ NOTE: If you have chronic liver or kidney disease or ever had a stomach ulcer or GI bleeding, talk with your doctor before using these medicines.] Follow Up with your doctor or this facility as directed, or if your symptoms have not improved after 24 hours. Get Prompt Medical Attention if any of the following occur: Increased eyelid swelling Increase in eye pain Increased redness or drainage from the eye Failure of normal vision to return within 24-48 hours. You have been given the following additional information: Conjunctivitis, Non-Specific Rest. (Electronically signed by Destiney Garcias P.A.-C 09/21/2016 13:21)
--- NOTE | 2016-09-21 13:41 | ED MAR SUMMARY ---
..... Medication Administration Record [facility] [address], [place] [id number] Patient: CLAIR ALFONSO Visit ID: [id number] 56y, M Weight: 73.4 kg Height/Length: 70 in BMI: 23.2 ALLERGIES: No Known Drug Allergy
--- NOTE | 2016-09-21 13:41 | ED MED RECONCILIATION SUMMARY ---
Patient: CLAIR ALFONSO Medication Reconciliation Report [facility] VisitID: [id number] [address] [place] [address] 56y, M Registration Date/Time: 09/21/2016 Weight: 73.4 kg Height/Length: 70 in. BMI: 23.2 ALLERGIES: No Known Drug Allergy The patient's Home Medications are listed below: NONE. The source(s) of the original Home Medication information: Not obtained. The following Medications were given to the patient in the Emergency Department: None. The following Medications were prescribed to the patient: Polytrim ophthalmic solution: Instill 1 drop into affected eye every 3 hours while awake (max 6 doses per day) for 1 week. Dispense five (5) mL. No refills. Substitution is permissible. -- Destiney Garcias, P.A.-C Tylenol ER 650 mg (available over the counter): take 1 orally every 8 hours for 5 days, as needed for fever. Dispense twenty (20). No refill. Substitution is permissible. -- Destiney Garcias, P.A.-C
--- NOTE | 2016-09-21 13:41 | ED MAR SUMMARY ---
..... Medication Administration Record Located Within [facility] [address], [place] [id number] Patient: CLAIR ALFONSO Visit ID: [id number] 56y, M Weight: 73.4 kg Height/Length: 70 in BMI: 23.2 ALLERGIES: No Known Drug Allergy
== END 2016-09-21 13:37 | disposition home or self-care (01) ==
LOC: ED SRH 12:51
DX: H10.31 Unspecified acute conjunctivitis, right eye (principal); I10 Essential (primary) hypertension